=== PATIENT | female | born 1970 | race Caucasian/White ===

== ENCOUNTER 2017-02-12 16:52 | Emergency (ER) | payer OTHER ==
[2017-02-12 17:04] VITALS: BP 118/77
--- NOTE | 2017-02-12 17:49 | ER Document Report ---
HPI - HPI Patient complains to provider of: Low back pain Onset: This morning - 7 AM Quality of pain: Burning, Sharp, Throbbing Pain Level: 5 Context: 46-year-old female felt a pop in the midline low back when she bent forward to slip on her shoes this morning at 7:00. She had to go to work and worked half a day and have increasingly more severe low back pain that wraps around it. No saddle anesthesia. No radiculopathy. No fever or chills. No UTI symptoms. She has had back pain before but this feels completely different because she is concerned that she did something worse than just straining the muscles. Associated Symptoms: None Exacerbated by: Movement Relieved by: Denies Similar symptoms previously: No - Not this kind of back pain Recently seen / treated by doctor: No - ROS ROS below otherwise negative: Yes Systems Reviewed and Negative: Yes All other systems reviewed and negative - REPRODUCTIVE Reproductive: DENIES: : - DERM Skin Color: Normal, [place] Past Medical History - General Information source: Patient - Social History Smoking Status: Unknown if Ever Smoked Frequency of alcohol use: None Drug Abuse: None Lives with: Spouse/Significant other Family History: Reviewed & Not Pertinent Renal/ Medical History: Denies: Hx Peritoneal Dialysis Musculoskeltal Medical History: Reports Hx Fibromyalgia Surgical Hx: Negative - Immunizations Immunizations up to date: No Hx Diphtheria, Pertussis, Tetanus Vaccination: No Vertical Provider Document - CONSTITUTIONAL Agree With Documented VS: Yes Exam Limitations: No Limitations General Appearance: Moderate Distress - INFECTION CONTROL TRAVEL OUTSIDE OF THE [place] IN LAST 30 DAYS: No - HEENT HEENT: Normocephalic - NECK Neck: Supple - RESPIRATORY Respiratory: Breath Sounds Normal, No Respiratory Distress O2 Sat by Pulse Oximetry: 96 - CARDIOVASCULAR Cardiovascular: Regular Rate, Regular Rhythm - BACK Back: Normal Inspection - MUSCULOSKELETAL/EXTREMETIES Musculoskeletal/Extremeties: MAEW, FROM, Tender - central lumbar back - NEURO Level of Consciousness: Awake, Alert, Appropriate Motor/Sensory: No Motor Deficit, No Sensory Deficit Deep Tendon Reflexes: 2+ - Bilateral ankle and patellar - DERM Integumentary: Warm, Dry, No Rash Course - Re-evaluation Re-evalutation: 02/12/17 19:03 Down to 3/5. She is asking for prescription for pain medication and Naprosyn but does not want muscle relaxers. Now remembers that she struggled with a 30 pound stringray yesterday and when she was done felt a strain in her back .Pain level 3/5, feels like she can go home. - Vital Signs Vital signs: Temp Pulse Resp BP Pulse Ox 98.5 F 88 20 118/77 96 02/12/17 17:02 02/12/17 17:02 02/12/17 17:02 02/12/17 17:02 02/12/17 17:02 Discharge - Discharge Clinical Impression: Low back strain Condition: Good Disposition: HOME, SELF-CARE Instructions: Low Back Pain ([facility]), Muscle Strain ([facility]), Oral Narcotic Medication ([facility]), Warm Packs ([facility]), Toradol Injection ([facility]), Anti-Inflammatory Medication ([facility]) Additional Instructions: warm compress gentle range of motion to er any concerns Please complete the patient satisfaction survey if you get one, and return it.. If you do not receive a survey, then you can go to the [facility] website, [email or web address] and place your comments about your very good care. Thank you very much. It was a pleasure being your medical provider today. Prescriptions: Oxycodone HCl/Acetaminophen [Percocet 10-325 Mg Tablet] 1 each PO Q4HP PRN #20 tablet PRN Reason: Naproxen 500 mg PO BID #30 tablet Forms: Return to Work
[2017-02-12] MEDS ORDERED: ONDANSETRON 4 MG TAB.RAPDIS PO ONE (17:50)
[2017-02-12] MEDS ORDERED: OXYCODONE-ACETAMINOPHEN 5-325 MG TABLET PO ONE (17:50)
[2017-02-12] MEDS ORDERED: KETOROLAC TROMETHAMINE 60 MG/2 ML SDV IM ONE (18:23)
== END 2017-02-12 19:32 | disposition home or self-care (01) ==
LOC: ER 16:52
DX: S39.012A Strain of muscle, fascia and tendon of lower back, initial encounter (principal); X58.XXXA Exposure to other specified factors, initial encounter
CPT/HCPCS: 99283; 96372; J1885; S0119

== ENCOUNTER 2018-03-08 20:56 | Emergency (ER) | payer OTHER ==
[2018-03-08] MEDS ORDERED: ASPIRIN 81 MG TABLET, CHEWABLE PO ONE (22:29)
--- NOTE | 2018-03-08 22:54 | ER Document Report ---
ED Cardiac - General Chief Complaint: Chest Pain Stated Complaint: CHEST PAIN Time Seen by Provider: 03/08/18 22:25 Mode of Arrival: Ambulatory Information source: Patient Notes: Patient is a 47-year-old female presenting with chief complaint of heart pounding, heaviness to the center of her chest, nausea and mild shortness of breath. Patient reports recent bronchitis in which she just finished azithromycin and prednisone. Patient reports that today she was swimming with her granddaughter, came in the house was feeling completely normal when she started feeling the symptoms as listed above. Patient reports she went upstairs to lie down hoping that they would go away. Patient reports that her symptoms persisted so she decided to come to the hospital to be evaluated. Patient reports past medical history of fibromyalgia. Previous surgical history is hysterectomy, breast reduction and exploratory laparotomy 2. Patient denies any cardiac history. Patient smokes 1 pack cigarettes per day, uses alcohol rarely and does not use any illicit drugs. TRAVEL OUTSIDE OF THE [place] IN LAST 30 DAYS: No - Related Data Allergies/Adverse Reactions: No Known Allergies Allergy (Unverified 02/12/17 17:05) Past Medical History - General Information source: Patient - Social History Smoking Status: Current Every Day Smoker - 1 pack per day Frequency of alcohol use: Rare Drug Abuse: None Family History: Reviewed & Not Pertinent Pulmonary Medical History: Reports: Hx Bronchitis Renal/ Medical History: Denies: Hx Peritoneal Dialysis Musculoskeltal Medical History: Reports Hx Fibromyalgia Past Surgical History: Reports: Hx Abdominal Surgery - laporatomy, Hx Breast Surgery - reduction, Hx Hysterectomy - Immunizations Immunizations up to date: No Hx Diphtheria, Pertussis, Tetanus Vaccination: No Review of Systems - Review of Systems Constitutional: No symptoms reported EENT: No symptoms reported Cardiovascular: See HPI Respiratory: See HPI Gastrointestinal: See HPI Genitourinary: No symptoms reported Female Genitourinary: No symptoms reported Musculoskeletal: No symptoms reported Skin: No symptoms reported Hematologic/Lymphatic: No symptoms reported Neurological/Psychological: No symptoms reported Physical Exam - Vital signs Vitals: Temp Pulse Resp BP Pulse Ox 97.9 F 100 18 117/79 96 03/08/18 21:14 03/08/18 21:14 03/08/18 21:14 03/08/18 21:14 03/08/18 21:14 - Notes Notes: PHYSICAL EXAMINATION: GENERAL: Well-appearing, well-nourished and in no acute distress. HEAD: Atraumatic, normocephalic. EYES: Pupils equal round and reactive to light, extraocular movements intact, conjunctiva are normal. ENT: Nares patent, oropharynx clear without exudates. Moist mucous membranes. NECK: Normal range of motion, supple without lymphadenopathy LUNGS: Breath sounds clear to auscultation bilaterally and equal. No wheezes rales or rhonchi. HEART: Regular rate and rhythm without murmurs. ABDOMEN: Soft, nontender, nondistended abdomen. No guarding, no rebound. No masses appreciated. Female : Deferred. Musculoskeletal: Normal range of motion, no pitting or edema. No cyanosis. NEUROLOGICAL: Cranial nerves grossly intact. Normal speech, normal gait. Normal sensory, motor exams. PSYCH: Normal mood, normal affect. SKIN: Warm, Dry, normal turgor, no rashes or lesions noted. Course - Re-evaluation Re-evalutation: Patient is an otherwise healthy 47-year-old female who presents with chief complaint of heart pounding, heaviness in the center of her chest and nausea. Patient denies any vomiting, fever or diaphoresis. Patient reports that she recently was treated with azithromycin as well as prednisone for bronchitis, patient took her last dose yesterday. EKG is a sinus rhythm with a rate of 93, normal axis, no ST segment elevations or depressions. Chest x-ray is unremarkable. CBC reveals leukocytosis with a white blood count of 21.3, patient just finished a course of steroids. Comprehensive metabolic panel is unremarkable. Initial troponin is normal. Will draw a delta troponin. Patient does report no chest pain at this time. Repeat troponin is also negative. Patient's heart score is 2. Patient continued continues to be chest pain-free, patient's vital signs remained stable. Patient will be discharged home with instructions to follow with her primary care provider next week for a follow-up. Patient instructed to return to the emergency department if she develops worsening symptoms such as worsening chest pain, shortness of breath or any other symptom that is concerning to her. - Vital Signs Vital signs: Temp Pulse Resp BP Pulse Ox 97.9 F 100 23 H 111/84 96 03/09/18 04:00 03/08/18 21:14 03/09/18 04:01 03/09/18 04:00 03/09/18 04:00 - Laboratory Result Diagrams: 03/08/18 22:44 03/08/18 22:44 Laboratory results interpreted by me: 03/08/18 03/08/18 22:44 22:44 WBC 21.3 H Hgb 15.7 H Band Neutrophils % 1 L Abs Neuts (Manual) 13.0 H Abs Lymphs (Manual) 7.2 H Chloride 108 H Est GFR (Non-Af Amer) 59 L Discharge - Discharge Clinical Impression: Chest pain Qualifiers: Chest pain type: unspecified Qualified Code(s): R07.9 - Chest pain, unspecified Condition: Stable Disposition: HOME, SELF-CARE Additional Instructions: You were seen today for chest pain. The exact cause of your pain is unclear. However, based on your cardiac enzyme testing, chest x-ray, and EKG it does not appear that it is from an immediately life-threatening cause at this time. Although your testing here is normal is critical that you follow-up with your primary care physician for continued evaluation of this chest pain and possible stress testing. I recommended you see your physician within the next 24-48 hours to be evaluated for consideration of a stress test. Please return to emergency department immediately if you have worsening of your chest pain, shortness of breath, vomiting, become unable to exert yourself due to pain or difficulty breathing, you pass out, or have any pain that radiates into your arms, jaw, or back. Please also return if you have any additional symptoms that are concerning to you. Prescriptions: Ibuprofen 800 mg PO Q8 PRN #30 tablet PRN Reason: For Pain Referrals: JERARDO JUDGE MD [ACTIVE STAFF] - Follow up as needed [facility] [Provider Group] - Follow up as needed
[2018-03-08 22:55] LABS: HEMATOCRIT 45.7 % (36.0-47.0); HEMOGLOBIN 15.7 g/dL (12.0-15.5); MEAN CORPUSCULAR HEMOGLOBIN 29.9 pg (27.0-33.4); MEAN CORPUSCULAR HGB CONC 34.4 g/dL (32.0-36.0); MEAN CORPUSCULAR VOLUME 87 fl (80-97); PLATELET COUNT 393 10^3/uL (150-450); RED BLOOD COUNT 5.26 10^6/uL (3.72-5.28); WHITE BLOOD COUNT 21.3 10^3/uL (4.0-10.5)
[2018-03-08 23:07] LABS: ALANINE AMINOTRANSFERASE 35 U/L (9-52); ALBUMIN 4.2 g/dL (3.5-5.0); ALKALINE PHOSPHATASE 99 U/L (38-126); ANION GAP 9 (5-19); ASPARTATE AMINO TRANSFERASE 21 U/L (14-36); BILIRUBIN,DIRECT 0.4 mg/dL (0.0-0.4); BILIRUBIN,TOTAL 0.5 mg/dL (0.2-1.3); BLOOD UREA NITROGEN 19 mg/dL (7-20); CALCIUM 9.6 mg/dL (8.4-10.2); CARBON DIOXIDE 27 mmol/L (22-30); CHLORIDE 108 mmol/L (98-107); CREATINE KINASE 72 U/L (30-135); GLUCOSE 99 mg/dL (75-110); POTASSIUM 4.7 mmol/L (3.6-5.0); SODIUM 143.6 mmol/L (137-145); TOTAL PROTEIN 7.1 g/dL (6.3-8.2)
[2018-03-08 23:11] LABS: ABSOLUTE LYMPHOCYTES# (MANUAL) 7.2 10^3/uL (0.5-4.7); ABSOLUTE MONOCYTES # (MANUAL) 0.6 10^3/uL (0.1-1.4); BAND NEUTROPHILS % (MANUAL) 1 % (3-5); BASOPHILS % (MANUAL) 0 % (0-2); EOSINOPHILS % (MANUAL) 2 % (0-6); LYMPHOCYTES % (MANUAL) 33 % (13-45); MONOCYTES % (MANUAL) 3 % (3-13); SEGMENTED NEUTROPHILS % (MAN) 60 % (42-78); TOTAL CELLS COUNTED 100
[2018-03-08 23:12] LABS: ANISOCYTOSIS SLIGHT; OVALOCYTES SLIGHT; PLATELET COMMENT ADEQUATE; POIKILOCYTOSIS SLIGHT
[2018-03-08 23:19] LABS: CREATINE KINASE MB 0.46 ng/mL (<4.55)
--- NOTE | 2018-03-08 23:20 | RADIOLOGY REPORT (SQ) ---
EXAM DESCRIPTION: XR CHEST 1 VIEW COMPLETED DATE/TME: 03/08/2018 22:29 CLINICAL HISTORY: 47 years Female, chest pain/shortness of breath COMPARISON: None. NUMBER OF VIEWS/TECHNIQUE: 1/AP FINDINGS: Adequate lung volume, clear parenchyma, normal cardiac silhouette, and intact bony thorax. IMPRESSION: No acute cardiopulmonary findings.
[2018-03-08 23:22] LABS: TROPONIN I < 0.012 ng/mL
[2018-03-09 04:23] VITALS: BP 111/84
--- NOTE | 2018-03-09 10:31 | EKG REPORT ---
SEVERITY:- ABNORMAL ECG - SINUS RHYTHM PROBABLE POSTERIOR INFARCT : Confirmed by: Louie Pollock MD 09-Mar-2018 10:30:57
== END 2018-03-09 04:23 | disposition home or self-care (01) ==
LOC: ER 20:56
DX: R07.9 Chest pain, unspecified (principal); R11.0 Nausea; R06.02 Shortness of breath; R09.89 Other specified symptoms and signs involving the circulatory and respiratory systems; D72.829 Elevated white blood cell count, unspecified; F17.210 Nicotine dependence, cigarettes, uncomplicated
CPT/HCPCS: 36415; 71045; 80053; 82550; 82553; 84484; 85025; 93005; 93010; 99285

== ENCOUNTER → 2020-08-20 | Day surgery (SDC) | payer OTHER ==
[~2020-08-20] MED LIST: BUPIVACAINE HCL 0.5 % INJ/PF 30 ML SDV ONE; METHYLPREDNISOLONE ACETATE INJ 80 MG/1 ML VIAL ONE
--- NOTE | 2020-08-20 15:21 | RADIOLOGY REPORT (SQ) ---
EXAM DESCRIPTION: FLUORO/NEEDLE PLACEMENT IMAGES COMPLETED DATE/TIME: 08/20/2020 3:09 pm REASON FOR STUDY: OTHER SPECIDIED JOINT DISORDERS M25.852 OTHER SPECIFIED JOINT DISORDERS, LEFT HIP COMPARISON: None. FLUOROSCOPY TIME: 17 seconds 1 images saved to PACS. LIMITATIONS: None. PROCEDURE: SITE OF INJECTION: Left hip LOCALIZING CONTRAST TYPE AND DOSE: 1 cc Omnipaque 300, 7 cc lidocaine 1% MEDICATION TYPE AND DOSE: Depo-Medrol 80 mg, Sensorcaine 5 mg Using local anesthesia and sterile technique with fluoroscopic guidance, the needle was advanced into the joint. Iodinated contrast was injected to verify intraarticular placement. This was followed by therapeutic injection of the indicated medications. The needle was removed. There were no immediat e complications. Preprocedure pain level: 4/5. Postprocedure pain level: 0/5. IMPRESSION: THERAPEUTIC INJECTION OF THE LEFT HIP JOINT ABOVE. COMMENT: Patient medication list reviewed: Yes- Quality ID# [id number]:Eligible professional attests to doc umenting in the medical record they obtained, updated, or reviewed the patient's current medications. . Quality ID 145: Final reports for procedures using fluoroscopy that document radiation exposure chapo caity, or exposure time and number of fluorographic images (if radiation exposure indices are not avail able) TECHNICAL DOCUMENTATION: JOB ID: [id number] 2010 [employer]- All Rights Reserved Reading location - IP/workstation name: [email or web address]
--- NOTE | 2020-08-20 16:13 | RADIOLOGY REPORT (SQ) ---
EXAM DESCRIPTION: INJECT/ASPIR HIP/SHLDR/KNEE COMPLETE DATE/TIME: 08/20/2020 3:09 pm REASON FOR STUDY: OTHER SPECIDIED JOINT DISORDERS M25.852 OTHER SPECIFIED JOINT DISORDERS, LEFT HIP FINDINGS: Please see combined report for performance of procedure and radiologic supervision and int erpretation. IMPRESSION: Please see combined report for performance of procedure and radiologic supervision and i nterpretation. Reading location - IP/workstation name: [email or web address]
== END ==
LOC: RAD 14:00
PROVIDERS: ATTEND Physician Assistant
DX: M25.852 Other specified joint disorders, left hip (principal)
CPT/HCPCS: 20610; 77002; J3490; J1040